=== PATIENT | female | born 2000 | race Asian ===

== ENCOUNTER 2024-03-23 23:07 | Emergency (ER) | payer BC ==
[~2024-03-23] VITALS: Ht 167.6 cm; Wt 61.2 kg
[2024-03-23 23:43] VITALS: BP_SYST 126; PULSE 67; RESP 16; TEMP 98.5; O2SAT 99
[2024-03-28] MEDS ORDERED: GUAI5SYR PO (09:51)
[2024-03-28] MEDS ORDERED: IBUP-1969 PO (09:51)
== END 2024-03-24 01:23 | disposition left against medical advice (07) ==
LOC: SED 23:07
DX: H92.03 Otalgia, bilateral (principal); Z53.21 Procedure and treatment not carried out due to patient leaving prior to being seen by health care provider